=== PATIENT | female | born 1935 | race Caucasian/White ===

== ENCOUNTER 2017-12-15 09:51 | Outpatient (CLI) | payer MEDICARE ==
[~2017-12-15 09:51] MED LIST: PRED5TAB PO
[2017-12-15] MEDS ORDERED: BARIUM SULFATE 98% 135 ML SUSP.RECON PO ONE (10:45)
== END 2017-12-15 23:59 | disposition home or self-care (01) ==
LOC: RAD 09:51
DX: K44.9 Diaphragmatic hernia without obstruction or gangrene (principal)
CPT/HCPCS: 74230-TC

== ENCOUNTER 2019-09-07 10:25 | Inpatient (IN) | payer MEDICARE ==
[~2019-09-07] VITALS: Ht 157.5 cm; Wt 67.6 kg
--- NOTE | 2019-09-07 10:35 | NUR ---
[id number], from home, c/o left hip pain 7/10 PS s/p GLF, got up in bed and felt dizzy, hit L side of the head on the floor, -ko, fentanyl 100mcg. Patient a/ox3, breathing even and unlabored, no sob noted, attached to the monitoring engineer. Needs attended.
[2019-09-07 11:10] LABS: BASOPHILS # (AUTO) 0.1 /CMM (0.0-0.2); BASOPHILS % (AUTO) 0.5 % (0.0-2.0); EOSINOPHILS % (AUTO) 0.1 % (0.0-6.0); HEMATOCRIT 28 % (33-45); HEMOGLOBIN 8.8 g/dL (11.5-14.8); LYMPHOCYTES # (AUTO) 0.9 /CMM (0.8-4.8); LYMPHOCYTES % (AUTO) 6.9 % (20.0-44.0); MEAN CORPUSCULAR HGB CONC 31 g/dl (31.0-36.0); MEAN CORPUSCULAR VOLUME 80 fL (82-100); MONOCYTES % (AUTO) 7.3 % (2.0-12.0); NEUTROPHILS # (AUTO) 11.7 /CMM (1.8-8.9); NEUTROPHILS % (AUTO) 85.2 % (43.0-81.0); PLATELET COUNT (AUTO) 290 /CMM (150-450); RED BLOOD CELL COUNT(AUTO) 3.48 MIL/uL (4.0-5.2); WHITE BLOOD COUNT (AUTO) 13.8 K/uL (4.3-11.0)
[2019-09-07 11:29] LABS: CALCIUM, SERUM 9.3 mg/dL (8.5-10.1); CREATININE 1.1 mg/dL (0.6-1.3); POTASSIUM 3.6 mmol/L (3.5-5.1)
[2019-09-07] MEDS ORDERED: ONDANSETRON HCL/PF 4 MG/2 ML VIAL ONE (11:41)
[2019-09-07] MEDS ORDERED: HYDROMORPHONE 1 MG/1 ML DISP.SYRIN ONE (11:42)
--- NOTE | 2019-09-07 11:46 | NUR ---
CALLED FOR MS BED MOVE SHEET SUBMITTED TO ADMITTING
[2019-09-07] MEDS ORDERED: ONDANSETRON HCL/PF 4 MG/2 ML VIAL IVP ONE (12:00)
[2019-09-07] MEDS ORDERED: HYDROMORPHONE INJ 2 MG/ML DISP.SYRIN IV ONE (12:00)
--- NOTE | 2019-09-07 12:12 | NUR ---
Patient is resting comfortably in bed with eyes closed. Easily aroused. VSS
--- NOTE | 2019-09-07 12:13 | NUR ---
CALLED [facility] [phone] ITS LISA
--- NOTE | 2019-09-07 12:41 | NUR ---
GOT BED 321-1 LINDSEY ACOSTA
--- NOTE | 2019-09-07 12:46 | NUR ---
CALLED [facility] ITS ANDONIAN
--- NOTE | 2019-09-07 12:51 | NUR ---
CALLED [facility] AGAIN [phone] ITS LISA
--- NOTE | 2019-09-07 13:26 | NUR ---
CALLED [facility] 3RD TIME [phone]
--- NOTE | 2019-09-07 13:29 | NUR ---
REPORT GIVEN TO KARLA PORTILLO.
[2019-09-07] MEDS ORDERED: ZOLPIDEM TARTRATE 5 MG TABLET PO PRN (14:00)
[2019-09-07] MEDS ORDERED: MAGNESIUM HYDROXIDE 30 ML UDC PO PRN (14:00)
[2019-09-07] MEDS ORDERED: MAG HYDROX/AL HYDROX/SIMETH 30 ML UDC PO PRN (14:00)
[2019-09-07] MEDS ORDERED: Z GUARD REMEDY 2 OZ OINT TP PRN (14:00)
--- NOTE | 2019-09-07 14:05 | NUR ---
PATIENT TRANSFERRED TO ROOM 321-1
--- NOTE | 2019-09-07 14:12 | NUR ---
RN NOTES PATIENT ARRIVED AT UNIT, REPORT RECEIVED FROM MANDA PORTILLO. PATIENT AWAKE, A/OX 4. NO ACUTE DISTRESS. VERBALIZES DISCOMFORT ON LEFT HIP BUT MANAGEABLE LONG LEFT HIP IS NOT MOVED/TOUCHED. PATIENT ORIENTED TO UNIT, STAFF, PLAN OF CARE AND VERBALIZED UNDERSTANDING. PATIENT UNDER MEDICAL SUPERVISION OF DR PALACIOS, AWARE OF PATIENT ARRIVAL. WILL CONTINUE TO MONITOR. BED LOCKED AND IN LOW POSITION. BILATERAL UPPER SIDE RAILS UP AND LOCKED. CALL LIGHT WITHIN EASY REACH
[2019-09-07 16:00] VITALS: BP 140/56
--- NOTE | 2019-09-07 16:15 | NUR ---
MS RN NOTES PLACED CALL TO [facility] ([phone]) AND SPOKE WITH [place] PHARMACIST, OBTAINED LIST OF MEDICATIONS PATIENT IS TAKING. DR PALACIOS MADE AWARE. WITH ORDERS TO CONTINUE MEDICATIONS EXCEPT METOPROLOL, ASA, PLAVIX. PATIENT MADE AWARE. WILL CONTINUE TO MONITOR
[2019-09-07] MEDS ORDERED: LEVO137T24 PO (16:24)
[2019-09-07] MEDS ORDERED: METO25TA4 PO (16:24)
[2019-09-07] MEDS ORDERED: PRED5TAB48 PO (16:24)
[2019-09-07] MEDS ORDERED: FURO-145 PO (16:24)
[2019-09-07] MEDS ORDERED: ROSU10TA2 PO (16:24)
[2019-09-07] MEDS ORDERED: ASPI-1169 PO (16:24)
[2019-09-07] MEDS ORDERED: CLOP75TA15 PO (16:24)
[2019-09-07] MEDS ORDERED: FUROSEMIDE 20 MG TABLET PO SCH (17:00)
[2019-09-07] MEDS: MORPHINE SULFATE INJ 2 MG/ML DISP.SYRIN IV PRN (17:02)
[2019-09-07] MEDS: predniSONE 5 MG TABLET PO SCH (17:03)
--- NOTE | 2019-09-07 17:15 | NUR ---
MS RN NOTES PATIENT SEEN AND EXAMINED BY OVI ROBLES. VERBALIZED THAT NO SURGICAL PROCEDURE TO BE DONE TODAY, PATIENT MAY HAVE PO DIET. PATIENT MADE AWARE AND VERBALIZED UNDERSTANDING. PATIENT FOR CT OF LEFT HIP.
--- NOTE | 2019-09-07 18:53 | NUR ---
MS RN NOTES PATIENT RESTING INSIDE ROOM. AWAKE, A/O X 4. NO ACUTE DISTRESS. PATIENT KEPT CLEAN, DRY AND COMFORTABLE. SAFETY PRECAUTIONS IN PLACE. WILL ENDORSE TO INCOMING SHIFT FOR NABIL. BED LOCKED AND IN LOW POSITION. BILATERAL UPPER SIDE RAILS UP AND LOCKED. CALL LIGHT WITHIN EASY REACH
--- NOTE | 2019-09-07 19:27 | NUR ---
MS/RN OPENING NOTES RECEIVED PATIENT IN BED, ABLE TO RESPOND WITH NOD, RESPIRATIONS EVEN AND UNLABORED, SKIN WARM TO TOUCH. LEFT LEG WITH BRUISE AND REDNESS ELEVATED WITH PILLOW. RIGHT AC GAUGE 20 PATENT WITH IV FLUID BEING INFUSEDM RECEIVED REPORT FROM AM RN FOR NABIL, POLST TO BE SIGNED BY ARIN OJEDA, AND TO FOLLOW UP WITH SURGEON LISA FOR POSSIBLE SX. WILL MONITOR,
[2019-09-07 20:00] VITALS: BP 141/72
--- NOTE | 2019-09-07 20:16 | NUR ---
MS/RN NOTES PATIENT REQUEST TO BE TAKEN OUT FOR SMOKE RUSTY AM, DISCUSSED AND EDUCATED ON DISEASE PROCESS AND EXPLAINED THE RISK PATIENT VERBALIZED. Addendum: 09/07/19 at 2018 by PAULO MUNSON RN DISREGARD FOR DIFFERENT PATIENT
--- NOTE | 2019-09-07 20:19 | NUR ---
MS/RN NOTES PATIETN DAUGHTER TAVO CALLED AND ASKED ABOUT STATUS OF PENDING PROCEDUREM TEL NO [phone] THAT WILL FOLLOW UP IN AM AND WILL INFORM OWN PCP OF OATIENT DR. YELENA PAEZ [phone].
--- NOTE | 2019-09-07 21:07 | NUR ---
,S/RN NOTES PATIENT WITH ELEVATED TEMPERATURE OF 102.4 AFTER COOLING MEASURES PROVIDED, MADE AWARE AND ORDERED STAT BLOOD CULTURE 2X, ALSO PATIENT WITH NO ANTIBIOTIC AT THIS TIME.LAB MADE AWARE, AND ORDER CARRIED OUT.
--- NOTE | 2019-09-07 21:35 | NUR ---
MS/RN NOTES MD ORDERED FOR ANTIBIOTIC ROCEPHIN 1G AT 100 MLHR/
[2019-09-07] MEDS ORDERED: CEFTRIAXONE 1 G VIAL ONE (21:45)
[2019-09-07] MEDS: CEFTRIAXONE 1 G in IV D5W 50 ML IV SCH (21:54)
[2019-09-07] MEDS: IV NS 0.9% 1,000 ML IV PRN (21:54)
[2019-09-08] MEDS: ACETAMINOPHEN 325 MG TABLET PO PRN ×2 (00:01→18:31)
[2019-09-08 01:30] VITALS: BP 139/70
[2019-09-08 04:00] VITALS: BP_SYST 47
[2019-09-08 04:54] LABS: APPEARANCE,URINE CLEAR (CLEAR); COLOR,URINE YELLOW (YELLOW)
[2019-09-08 04:55] LABS: BILIRUBIN,URINE NEGATIVE (NEGATIVE); BLOOD, URINE NEGATIVE Ery/uL (NEGATIVE); KETONES,URINE NEGATIVE (NEGATIVE); PROTEIN,URINE TRACE mg/dl (NEGATIVE); UGLUCOSE NEGATIVE (NEGATIVE); UROBILINOGEN,URINE 0.2 EU/dL (0.2)
[2019-09-08 04:56] LABS: LEUKOCYTE ESTERASE ,URINE NEGATIVE (NEGATIVE); NITRITE, URINE NEGATIVE (NEGATIVE)
[2019-09-08 05:02] LABS: BACTERIA,URINE Few /HPF (None Seen); RBC,URINE 0-2 /HPF (0-2); SQUAMOUS EPITHELIAL CELL,UR Few /HPF (None Seen); WBC,URINE 0-2 /HPF (0-3)
[2019-09-08] MEDS: LEVOTHYROXINE SODIUM 100 MCG TABLET PO SCH ×2 (07:30→08:25)
[2019-09-08 07:51] LABS: BASOPHILS % (AUTO) 0.2 % (0.0-2.0); EOSINOPHILS % (AUTO) 0.5 % (0.0-6.0); HEMATOCRIT 27 % (33-45); HEMOGLOBIN 8.7 g/dL (11.5-14.8); LYMPHOCYTES # (AUTO) 0.5 /CMM (0.8-4.8); LYMPHOCYTES % (AUTO) 4.8 % (20.0-44.0); MEAN CORPUSCULAR HGB CONC 32 g/dl (31.0-36.0); MEAN CORPUSCULAR VOLUME 80 fL (82-100); MONOCYTES # (AUTO) 0.5 /CMM (0.1-1.30); MONOCYTES % (AUTO) 5.4 % (2.0-12.0); NEUTROPHILS # (AUTO) 8.9 /CMM (1.8-8.9); NEUTROPHILS % (AUTO) 89.1 % (43.0-81.0); PLATELET COUNT (AUTO) 243 /CMM (150-450); RED BLOOD CELL COUNT(AUTO) 3.38 MIL/uL (4.0-5.2)
[2019-09-08 08:00] VITALS: BP 153/66
[2019-09-08 08:08] LABS: CALCIUM, SERUM 8.6 mg/dL (8.5-10.1); CREATININE 1.2 mg/dL (0.6-1.3); POTASSIUM 4.1 mmol/L (3.5-5.1)
[2019-09-08] MEDS: MORPHINE SULFATE INJ 2 MG/ML DISP.SYRIN IV PRN ×3 (08:23→17:24)
[2019-09-08] MEDS: ONDANSETRON HCL/PF 4 MG/2 ML VIAL IVP PRN ×2 (08:24→15:13)
[2019-09-08] MEDS: ATORVASTATIN 10 MG TABLET PO SCH ×2 (08:25→08:37)
[2019-09-08] MEDS: predniSONE 5 MG TABLET PO SCH ×2 (08:25→17:00)
[2019-09-08 08:49] LABS: THYROID STIMULATING HORMONE 0.012 uIU/mL (0.358-3.74)
[2019-09-08] MEDS ORDERED: IBUPROFEN 600 MG TABLET PO PRN (09:30)
[2019-09-08 16:00] VITALS: BP_SYST 122; BP_DIAS 59; BP_DIAS 60
--- NOTE | 2019-09-08 17:00 | NUR ---
MS/RN NOTE notified Eulalia Gamez patient is on Clopidogrel 75mg daily. Last dose taken was Friday09/06/19.
--- NOTE | 2019-09-08 19:20 | NUR ---
MS RN OPENING NOTES RECEIVED PATIENT IN BED, ALERT, ORIENTED X 3. BREATHING EVEN AND UNLABORED. NOT IN ANY DISTRESS. ON ROOM AIR. NO COMPLAINTS OF PAIN OR DISCOMFORT AT THIS TIME. IV LINE ON RAC NOTED TO BE LEAKING. NEW IV LINE ON R) UPPER ARM INSERTED WITH GOOD BLOOD RETURN. SAFETY MEASURES IN PLACE; CALL LIGHT WITHIN REACH, BED IN LOW, LOCKED POSITION. WILL CONTINUE TO MONITOR ACCORDINGLY
--- NOTE | 2019-09-08 19:31 | NUR ---
MS/RN Closing note Patient is resting in bed, A/O x4, showing no signs of acute distress or SOB, saturating >95% on RA. IV line in the RAC #20 s/l is clean and patent. All patient needs met, all due meds given. Patient is to be NPO after midnight as per Eulalia DIOR. Bed is in lowest position, side rials x2 in upright position, call light is within reach and patient is aware of how to call for assistance when needed. Will endorse to senior control systems engineer.
[2019-09-08 20:00] VITALS: BP 119/57
[2019-09-08] MEDS: CEFTRIAXONE 1 G in IV D5W 50 ML IV SCH (20:44)
--- NOTE | 2019-09-08 20:50 | NUR ---
RN NOTES PATIENT INFORMED THAT SURGERY WILL BE AT 11:30AM IN THE MORNING ON 09/09/2019
[2019-09-09] VITALS (11 sets, daily range): BP systolic 117–177; BP diastolic 60–86
[2019-09-09] MEDS: IV NS 0.9% 1,000 ML IV PRN (00:39)
[2019-09-09 06:41] LABS: BASOPHILS % (AUTO) 0.2 % (0.0-2.0); EOSINOPHILS % (AUTO) 2.6 % (0.0-6.0); HEMATOCRIT 25 % (33-45); LYMPHOCYTES # (AUTO) 1.1 /CMM (0.8-4.8); LYMPHOCYTES % (AUTO) 10.6 % (20.0-44.0); MEAN CORPUSCULAR HGB CONC 32 g/dl (31.0-36.0); MEAN CORPUSCULAR VOLUME 80 fL (82-100); MONOCYTES # (AUTO) 0.9 /CMM (0.1-1.30); MONOCYTES % (AUTO) 8.1 % (2.0-12.0); NEUTROPHILS # (AUTO) 8.2 /CMM (1.8-8.9); NEUTROPHILS % (AUTO) 78.5 % (43.0-81.0); PLATELET COUNT (AUTO) 224 /CMM (150-450); RED BLOOD CELL COUNT(AUTO) 3.14 MIL/uL (4.0-5.2); WHITE BLOOD COUNT (AUTO) 10.5 K/uL (4.3-11.0)
--- NOTE | 2019-09-09 06:44 | NUR ---
MS RN CLOSING NOTES PATIENT RESTING IN BED, ALERT, ORIENTED X 3. BREATHING EVEN AND UNLABORED. NOT IN ANY DISTRESS. NO COMPLAINTS AT THIS TIME. PERIPHERAL IV INFUSING AT 100ML/HR. KEPT CLEAN, DRY AND COMFORTABLE. NO ACUTE CHANGES OVERNIGHT. SAFETY MEASURES IN PLACE; CALL LIGHT WITHIN REACH. BED IN LOW, LOCKED POSITION. WILL ENDORSE NABIL TO ONCOMING RN
[2019-09-09 07:10] LABS: CALCIUM, SERUM 8.5 mg/dL (8.5-10.1); CARBON DIOXIDE 25 mmol/L (21-32); CHLORIDE 109 mmol/L (98-107); CREATININE 1.4 mg/dL (0.6-1.3); GLUCOSE 93 mg/dL (74-106); POTASSIUM 3.7 mmol/L (3.5-5.1); SODIUM SERUM 141 mmol/L (136-145); UREA NITROGEN, BLOOD 28 mg/dL (7-18)
[2019-09-09] MEDS: LEVOTHYROXINE SODIUM 100 MCG TABLET PO SCH (07:30)
--- NOTE | 2019-09-09 07:40 | NUR ---
MS/RN NOTE THE PATIENT IS RECEIVED IN BED. PATIENT IS ALERT AND ORIENTED X4. IN ROOM AIR AND DENIES SOB. RESPIRATION REGULAR AND UNLABORED. COMPLAINS OF LEFT HIP PAIN 3/10 AT THIS TIME. OFFERED PAIN MEDICATION BUT THE PATIENT REFUSES PAIN MEDICATION AT THIS TIME. PATIENT NPO SINCE MIDNIGHT. NEHEMIAH G 20 PATENT AND NS INFUSING AT 100ML/HR AND NO S/S INFILTRATION NOTED. BED LOW AND LOCKED. SIDE RAILS UP X3. CALL LIGHT WITHIN REACH. WILL CONTINUE TO MONITOR.
[2019-09-09] MEDS: predniSONE 5 MG TABLET PO SCH ×2 (08:45→16:25)
[2019-09-09] MEDS: ATORVASTATIN 10 MG TABLET PO SCH (08:45)
--- NOTE | 2019-09-09 09:43 | NUR ---
MS/RN NOTE RECEIVED NEW ORDER FROM DR DEVLIN FOR 1 UNIT O PRBC FOR HGB LESS THAN 7. THE ORDER IS READ BACK, VERIFIED. NOTED AND CARRIED OUT.
[2019-09-09] MEDS: MORPHINE SULFATE INJ 2 MG/ML DISP.SYRIN IV PRN ×2 (10:13→16:21)
--- NOTE | 2019-09-09 10:31 | NUR ---
MS/RN NOTE THE PATIENT GOT PICKED UP IN BED GOING TO A SURGERY. THE PATIENT ALERT AND ORIENTED X4. DENIES SOB. IN ROOM AIR AND SATURATION IS AT 98%. DENIES PAIN AT THIS TIME. THE PATIENT IN STABLE CONDITION.
--- NOTE | 2019-09-09 10:50 | NUR ---
MS/RN NOTE 1043 PAIN ASSESSMENT NOT DONE DUE TO PATIENT BEING IN OR AT THE TIME.
[2019-09-09] MEDS ORDERED: BUPIVACAINE 0.5 % PF 150 MG/30 ML VIAL ONE (10:51)
[2019-09-09] MEDS ORDERED: BACITRACIN 50000 UNITS/VIAL ONE (10:51)
[2019-09-09] MEDS ORDERED: FENTANYL PF 100MCG/2ML AMPUL ONE (12:57)
[2019-09-09] MEDS ORDERED: HYDROMORPHONE 1 MG/1 ML DISP.SYRIN ONE (13:00)
[2019-09-09 13:20] LABS: BASOPHILS % (AUTO) 0.1 % (0.0-2.0); EOSINOPHILS % (AUTO) 2.7 % (0.0-6.0); HEMATOCRIT 26 % (33-45); HEMOGLOBIN 8.1 g/dL (11.5-14.8); LYMPHOCYTES # (AUTO) 0.5 /CMM (0.8-4.8); LYMPHOCYTES % (AUTO) 4.7 % (20.0-44.0); MEAN CORPUSCULAR HGB CONC 32 g/dl (31.0-36.0); MEAN CORPUSCULAR VOLUME 81 fL (82-100); MONOCYTES # (AUTO) 0.6 /CMM (0.1-1.30); MONOCYTES % (AUTO) 5.6 % (2.0-12.0); NEUTROPHILS % (AUTO) 86.9 % (43.0-81.0); PLATELET COUNT (AUTO) 230 /CMM (150-450); RED BLOOD CELL COUNT(AUTO) 3.16 MIL/uL (4.0-5.2); WHITE BLOOD COUNT (AUTO) 10.3 K/uL (4.3-11.0)
--- NOTE | 2019-09-09 13:25 | NUR ---
MS/RN NOTE RECEIVED THE PATIENT FROM OR. THE PATIENT IS ALERT AND ORIENTED X4. RECEIVING OXYGEN AT 2L/MIN VIA NASAL CANNULA AND DENIES SOB. RESPIRATION REGULAR AND UNLABORED. PATIENT COMPLAINS OF LEFT HIP AND LEG PAIN 5/10. DOES NOT WANT PAIN MEDICATION AT THIS TIME. PEDAL PULSES PRESENT. NO APPARENT S/S POOR CIRCULATION NOTED. APPLIED SCD SLEEVES ON BOTH LOWER LEGS. BED LOW AND LOCKED. SIDE RAILS UP X3. CALL LIGHT WITHIN REACH. WILL CONTINUE TO MONITOR.
[2019-09-09] MEDS: ONDANSETRON HCL/PF 4 MG/2 ML VIAL IVP PRN (13:40)
[2019-09-09] MEDS ORDERED: ENOXAPARIN SODIUM 40 MG/0.4 ML DISP.SYRIN SQ SCH (14:00)
[2019-09-09] MEDS: IV LR 1000 ML 1,000 ML IV PRN (14:35)
--- NOTE | 2019-09-09 15:10 | NUR ---
MS/RN NOTE LOVENOX 40 MG SQ DUE AT 1400 IS NOT ADMINISTERED DUE TO PATIENT`S REFUSAL.
[2019-09-09] MEDS: SOD FERRIC GLUC 125 MG in IV NS 0.9% 100 ML IV SCH (16:02)
--- NOTE | 2019-09-09 16:10 | NUR ---
MS/RN NOTE PATIENT`S BLOOD PRESSURE IS 172/84 AND PULSE 74. PAGED ANDONIAN. WAITING FOR CALL BACK.
--- NOTE | 2019-09-09 16:30 | NUR ---
MS/RN NOTE PATIENT COMPLAINS OF LEFT EYE PAIN 2 AND REQUESTING ARTIFICIAL EYE DROPS. NO APPARENT S/S STROKE NOTED.
--- NOTE | 2019-09-09 16:50 | NUR ---
MS/RN NOTE BLOOD PRESSURE IS 176/80 AND PULSE 70.
--- NOTE | 2019-09-09 17:00 | NUR ---
MS/RN NOTE RECEIVED CALL FROM DR PALACIOS, MADE HIM AWARE OF PATIENT`S BLOOD PRESSURE READINGS AND PATIENT COMPLAINING OF LEFT EYE PAIN. RECEIVED ORDERS OF APRESOLINE 25 MG PO ONE TIME ORDER AND ARTIFICIAL TEARS DROP 1 DROP IN EACH EYES Q8HR PRN. READ BACK, VERIFIED. NOTED AND CARRIED OUT.
--- NOTE | 2019-09-09 17:19 | NUR ---
MS/RN NOTE PHARMACY VERIFIED APRESOLINE 25 MG PO. ADMINISTERED THE MEDICATION FOR BLOOD PRESSURE OF 166/80, PULSE 80. WILL CONTINUE TO MONITOR.
[2019-09-09] MEDS ORDERED: hydrALAZINE HCL 25 MG TABLET PO ONE (17:30)
--- NOTE | 2019-09-09 18:17 | NUR ---
MS/RN NOTE BLOOR PRESSURE RECHECKED: BLOOR PRESSURE IS 140/60 AND PULSE 92.
[2019-09-09] MEDS: CARBOXYMETHYLCELLULOSE SODIUM 0.4 ML DROPERETTE EACHEYE PRN (18:18)
--- NOTE | 2019-09-09 18:21 | NUR ---
MS/RN NOTE THE PATIENT IS ALERT AND ORIENTED X3. IN ROOM AIR AND SATURATION IS AT 92%. DENIES SOB. PATIENT COMPLAINS OF LEFTHIP PAIN 2/. DRESSING INTACT WITH NO BLEEDING. NO APPARENT S/S INFECTION NOTE AROUND DRESSING. THE PATIENT TOLERATED REGULAR DIET WELL. RIGHT WRIST G 22 PATENT AND IV FLUID INFUSING PER ORDER. NO S/S INFILTRATION NOTED. BED LOW AND LOCKED. SIDE RAILS UP X3. CALL LIGHT WITHIN REACH. WILL ENDORSE TO ROLLER OPERATOR.
--- NOTE | 2019-09-09 18:26 | NUR ---
MS/RN NOTE THE PATIENT DENIES HAVING PAIN/DISCOMFORT AT THIS TIME.
--- NOTE | 2019-09-09 19:30 | NUR ---
MS RN RECEIVE PT IN BED A/O X 3, S/P ORIF L HIP FX, L HIP WITH SURGICAL DRESSING INTACT NO S/S OF BLEEDING NOTED. STABLE AND NOT IN DISTRESS, SAFETY MEASURES AT ALL TIMES. WILL CONT TO MONITOR
--- NOTE | 2019-09-09 20:05 | NUR ---
VANDANA HOSPITALIST PT C/O REQUESTING DIGGS CATH TO BE INSERTED PER HOSPITALIST CALLED [facility]. CALLED [facility] SPOKE TO DR. IAN SWANN WITH NEW ORDERS TO INSERT DIGGS CATHETER READ BACK AND VERIFIED ORDERS NOTED AND CARRIED OUT
--- NOTE | 2019-09-09 20:20 | NUR ---
MS RN INSERTED DIGGS CATHETER FR 16 PT TOLERATED PROCEDURE WELL. STERILE TECHNIQUE
[2019-09-09] MEDS: HYDROCODONE/APAP 5/325MG 1 EACH TABLET PO PRN (20:37)
[2019-09-09] MEDS: CEFTRIAXONE 1 G in IV D5W 50 ML IV SCH (22:03)
[2019-09-09] MEDS: ENOXAPARIN SODIUM 40 MG/0.4 ML DISP.SYRIN SQ SCH (22:04)
[2019-09-10] VITALS (7 sets, daily range): BP systolic 158–180; BP diastolic 64–83
[2019-09-10] MEDS: IV LR 1000 ML 1,000 ML IV PRN ×2 (03:41→23:21)
--- NOTE | 2019-09-10 06:17 | NUR ---
PT ASLEEP AND EASILY AWAKEN, MONITORED FOR PAIN NO C/O OF PAIN AT THIS TIME.S/P L HIP ORIF DRESSING INTACT NO S/S OF BLEEDING NOTED. NEEDS ATTENDED AND ANTICIPATED. KEPT CLEAN, DRY AND COMFORTABLE. AM CARE RENDERED. ASSISTED REPOSITION Q2HR. OFFLOAD HEELS AND ELBOWS AT ALL TIMES. WBAT. SAFETY MEASURES AT ALL TIMES. WILL ENDORSE TO NEXT SHIFT.
--- NOTE | 2019-09-10 07:38 | NUR ---
MS/RN Opening note Patient received resting in bed, A/O x3, showing no signs of acute distress or SOB, saturating >95% on RA. Iv line on the right wrist #22 is clean and patent running at 75 ml/hr. S/P L hip ORIF with Dr. Leach. Dressing is intact, showing no s/s of bleeding. Bed is in lowest position, side rails x3 in upright position, call light is within reach and patient is aware of how to call for assistance when needed. Safety and fall precautions enforced. Will continue with plan of care.
--- NOTE | 2019-09-10 08:00 | NUR ---
MS/RN note Patient complained of chest pain radiating to back, notified Dr. Tucker, he assessed patient and ordered state EKG, troponin, and 0.4mg nitro SL. Addendum: 09/10/19 at 0954 by EDITH GOMEZ RN When Dr. Tucker entered room, patient stated her chest pain has gotten better, prior to any intervention.
[2019-09-10] MEDS: CARBOXYMETHYLCELLULOSE SODIUM 0.4 ML DROPERETTE EACHEYE PRN (08:28)
[2019-09-10] MEDS: ATORVASTATIN 10 MG TABLET PO SCH ×2 (08:41→08:47)
[2019-09-10] MEDS: predniSONE 5 MG TABLET PO SCH ×2 (08:48→16:17)
[2019-09-10] MEDS ORDERED: NITROGLYCERIN 0.4 MG/TAB BOTTLE SL ONE (09:00)
--- NOTE | 2019-09-10 09:00 | NUR ---
MS/RN note Nitro given. Patient on 2L NC. Will continue to monitor
--- NOTE | 2019-09-10 09:15 | NUR ---
MS/RN note Patient remains stable, no complaints of pain at this time. BP 158/64, O2 98% on 2L NC, temp 98.4 F.
--- NOTE | 2019-09-10 10:00 | NUR ---
MS/RN PT S/B PT, walked 10 feet with walker, PT approved for patient to use bedside commode.
--- NOTE | 2019-09-10 12:00 | NUR ---
/RN Gilliland Gilliland catheter removed per patient's request to try and use bedside commode. Will continue to monitor. Addendum: 09/10/19 at 1435 by EDITH GOMEZ RN as ordered, gilliland removed after 24 hrs post-op. Patient will be on trial void. Will continue to monitor for any bladder distention and urinary retention.
--- NOTE | 2019-09-10 12:00 | NUR ---
MS/RN troponin Notified Dr. Tucker troponin is 0.216. Ordered routine Troponin lab x2. No further orders at this time.
[2019-09-10] MEDS: SOD FERRIC GLUC 125 MG in IV NS 0.9% 100 ML IV SCH (12:40)
--- NOTE | 2019-09-10 16:01 | NUR ---
MS/RN Elevated BP Notified Dr. Tucker of BP 180/68 IN 87. Hydralazine 25mg PRN Q6 hours for BP greater than 160/90 ordered. Repeated order back to MD and will carry out the order.
[2019-09-10] MEDS: hydrALAZINE HCL 25 MG TABLET PO PRN ×2 (16:18→21:44)
--- NOTE | 2019-09-10 17:00 | NUR ---
MS/RN elevated BP Notified Dr. Tucker of patient's BP 196/89, DC 84. Manual BP 170/70. Patient stated she became anxious after family visited her, family constantly calling her cellphone and after getting up to the bedside commode. No new orders from MD at this time. Will educate patient on relaxation methods and monitor blood pressure, per MD.
[2019-09-10] MEDS: MORPHINE SULFATE INJ 2 MG/ML DISP.SYRIN IV PRN (17:10)
--- NOTE | 2019-09-10 18:00 | NUR ---
MS/RN NOTE Patient able to urinate 200cc in bedside commode
--- NOTE | 2019-09-10 19:16 | NUR ---
MS/RN Closing note Patient is resting in bed, saturating >95% on 2L NC. Showing no signs of distress at this time. IV line in the RFA #22 is running NS @ 75ml/hour. Left hip surgical incision is clean and dry with no signs of bleeding. All patient needs met, all due meds given. Bed is in lowest position, side rails x3 in upright position, safety and fall precautions enforced. Call light is within reach and patient is aware of how to call for assistance when needed. Will endorse to second shift supervisor. Addendum: 09/10/19 at 1923 by EDITH GOMEZ RN IV running LR at 75ml/hour
--- NOTE | 2019-09-10 20:30 | NUR ---
pt requesting colace. spoke with rainer xiong new order for colace 100 mg bid po given with dose ordered for now. patient hasnt had bm since last friday per her account. `
--- NOTE | 2019-09-10 21:14 | NUR ---
pt refused lab draw. scheduled troponin. patient refused lab draw per laboratory assistant. spoke with patient states "I don't want to have the labs. my arm just cant take it anymore." infomred that the lab will be added to am labs. pt states "well we will have to just see how my arm feels later in the am."
[2019-09-10] MEDS: DOCUSATE SODIUM 100 MG CAPSULE PO SCH (21:30)
[2019-09-10] MEDS: ENOXAPARIN SODIUM 40 MG/0.4 ML DISP.SYRIN SQ SCH (21:34)
[2019-09-11] VITALS (8 sets, daily range): BP systolic 128–174; BP diastolic 59–72
--- NOTE | 2019-09-11 | NUR ---
LINDSEY NOTES: RESTING, APPEARS CALM AND COMFORTABLE, NO FACIAL GRIMACE NOTED. Addendum: 09/12/19 at 0647 by TIA DELCID RN DISREGARD ABOVE DOCUMENTATION: WRONG ENTRY
[2019-09-11 07:14] LABS: BASOPHILS % (AUTO) 0.1 % (0.0-2.0); EOSINOPHILS % (AUTO) 0.1 % (0.0-6.0); LYMPHOCYTES % (AUTO) 8.9 % (20.0-44.0); MEAN CORPUSCULAR HGB CONC 33 g/dl (31.0-36.0); MEAN CORPUSCULAR VOLUME 80 fL (82-100); MONOCYTES # (AUTO) 1.1 /CMM (0.1-1.30); MONOCYTES % (AUTO) 10.1 % (2.0-12.0); NEUTROPHILS # (AUTO) 8.8 /CMM (1.8-8.9); NEUTROPHILS % (AUTO) 80.8 % (43.0-81.0); PLATELET COUNT (AUTO) 210 /CMM (150-450); RED BLOOD CELL COUNT(AUTO) 2.44 MIL/uL (4.0-5.2); WHITE BLOOD COUNT (AUTO) 10.9 K/uL (4.3-11.0)
[2019-09-11 07:53] LABS: HEMATOCRIT 20 % (33-45); HEMOGLOBIN 6.4 g/dL (11.5-14.8)
--- NOTE | 2019-09-11 07:54 | NUR ---
MS/RN Critical lab Received call from lab, spoke with Marva. Stated patient's Hemoglobin 6.4, hematocrit 20. Informed Dr. Tucker of the lab results and he ordered another set of Hemoglobin and Hematocrit labs at 1000. No further orders at this time. Will continue to monitor.
[2019-09-11 08:27] LABS: EOSINOPHILS % (MANUAL) 1 % (0-4); LYMPHOCYTES % (MANUAL) 3 % (16-48); MONOCYTES % (MANUAL) 5 % (0-11.0); NEUTROPHILS % (MANUAL) 91 (42-76)
[2019-09-11] MEDS: ATORVASTATIN 10 MG TABLET PO SCH (09:00)
[2019-09-11] MEDS ORDERED: ENOXAPARIN SODIUM 60 MG/0.6 ML DISP.SYRIN SQ SCH (09:00)
--- NOTE | 2019-09-11 09:00 | NUR ---
MS/RN DC lovenox Lovenox DC'd per MD order due to critcal value of Hgb 6.4
[2019-09-11 09:33] LABS: CALCIUM, SERUM 8.4 mg/dL (8.5-10.1); CREATININE 1.2 mg/dL (0.6-1.3); POTASSIUM 4.6 mmol/L (3.5-5.1)
[2019-09-11] MEDS: predniSONE 5 MG TABLET PO SCH ×3 (09:33→17:31)
[2019-09-11] MEDS: DOCUSATE SODIUM 100 MG CAPSULE PO SCH ×2 (09:33→17:00)
[2019-09-11] MEDS: MORPHINE SULFATE INJ 2 MG/ML DISP.SYRIN IV PRN ×2 (09:35→14:59)
[2019-09-11 12:25] LABS: HEMOGLOBIN 6.5 g/dL (11.5-14.8)
--- NOTE | 2019-09-11 12:28 | NUR ---
MS/RN critical lab value Received a call from lab, spoke with Marva. Critical lab value of Hgb 6.5. Paged Dr. Tucker
--- NOTE | 2019-09-11 13:44 | NUR ---
MS RN NOTES-- RECEIVED VERBAL ORDER FROM DR. PALACIOS FOR MIDLINE INSERTION FOR MULTIPLE PIV ATTEMPS. ORDERS READ BACK AND VERIFIED. NOTIFIED SHEET HEATER HELPER MELCHOR.
--- NOTE | 2019-09-11 14:19 | NUR ---
MS/RN received a call from lab that they have blood ready since 09/09/19 and that its ok to give today.
[2019-09-11] MEDS: ACETAMINOPHEN 325 MG TABLET PO PRN (15:31)
--- NOTE | 2019-09-11 15:50 | NUR ---
MS/RN Blood transfusion Blood transfusion started. I am currently at the bedside, will monitor patient closely.
--- NOTE | 2019-09-11 16:05 | NUR ---
MS/RN blood transfusion Patient showing no signs of acute distress or SOB, patient reports no s/sx of transfusion reaction. Will continue to monitor.
[2019-09-11] MEDS: SOD FERRIC GLUC 125 MG in IV NS 0.9% 100 ML IV SCH (18:57)
--- NOTE | 2019-09-11 18:58 | NUR ---
MS RN NOTE PATIENT TOLERATED BLOOD TRANSFUSION. VITAL SIGNS WNL. NO ADVERSE REACTIONS. PATIENT IN NO ACUTE DISTRESS. NO SOB NOTED. PATIENT BREATHING IS EVEN AND UNLABORED. WILL CONTINUE TO MONITOR.
--- NOTE | 2019-09-11 19:10 | NUR ---
MS RN CLOSING NOTE PATIENT IN BED RESTING COMFORTABLY. PATIENT IN NO ACUTE DISTRESS. NO SOB NOTED. PATIENT BREATHING IS EVEN AND UNLABORED. PATIENT NEEDS AND CONCERNS ADDRESSED. HOB IS ELEVATED. BED ALARM IS ON. PATIENT KEPT CLEAN, DRY AND COMFORTABLE THROUGHOUT SHIFT. SURGICAL DRESSING DRY AND INTACT. PATIENT EXTREMITIES OFFLOADED ON PILLOWS. PATIENT MIDLINE INTACT AND PATENT. PATIENT BED IS LOCKED AND IN LOWEST POSITION. CALL LIGHT WITHIN REACH. WILL ENDORSE CARE TO PM SHIFT FOR NABIL.
--- NOTE | 2019-09-11 19:30 | NUR ---
RN NOTES/ASSESSMENT: RECEIVED REPORT FROM DOROTHY PORTILLO. PT RESTING, APEARS CALM AND COMFORTABLE, NO FACIAL GRIMACE NOTED. S/P LEFT HIP ORIF BY DR SOSA , DRESSING C/D/I, NO ACTIVE BLEEDING NOTED. NEW MIDLINE INSERTED BY DR TANG. S/P 1UNITS PRBC TODAY FOR H/H 6.5 AND 21. PATENT AND FLUSHING WELL, ON HL. OFFERED PAIN MEDICATION BUT REFUSED, STATED SHE'S OKAY AT THIS TIME, AND WILL CALL IF PAIN MEDS IS NEEDED. PT WORKED WITH PT TODAY. DISCUSSED PLAN OF CARE TO PT. SAFETY PRECAUTIONS FOR FALL INITIATED, CALL LIGHT IN REACH, WILL CONTINUE MONITORING PT.
--- NOTE | 2019-09-11 19:46 | NUR ---
MS PORTILLO NOTE PATIENT TOLERATED MIDLINE WELL. PATIENT IN NO DISTRESS. MIDLINE PATENT AND INTACT. Addendum: 09/11/19 at 1947 by EDITH GOMEZ RN AT 1341.
--- NOTE | 2019-09-11 20:00 | NUR ---
RN NOTES/COOLING MEASURES: COOLING MEASURES PROVIDED, REMOVED EXCESS BLANKET, TEMP 99.9. WILL RECHECK IN AN HOUR.
--- NOTE | 2019-09-11 21:00 | NUR ---
RN NOTES/TEMP: RECHECK TEMP 99.0. PRN TYLENOL WAS ADMINISTERED AT 1531. CONTINUE WITH COOLING MEASURES.
--- NOTE | 2019-09-12 | NUR ---
RN NOTES: RESTING IN BED, APPEARS CALM AND COMFORTABLE, NO FACIAL GRIMACE NOTED.
[2019-09-12 05:43] LABS: BASOPHILS % (AUTO) 0.2 % (0.0-2.0); EOSINOPHILS % (AUTO) 2.4 % (0.0-6.0); HEMATOCRIT 23 % (33-45); HEMOGLOBIN 7.5 g/dL (11.5-14.8); LYMPHOCYTES # (AUTO) 1.9 /CMM (0.8-4.8); LYMPHOCYTES % (AUTO) 17.5 % (20.0-44.0); MEAN CORPUSCULAR HGB CONC 33 g/dl (31.0-36.0); MEAN CORPUSCULAR VOLUME 83 fL (82-100); MONOCYTES % (AUTO) 9.2 % (2.0-12.0); NEUTROPHILS # (AUTO) 7.7 /CMM (1.8-8.9); NEUTROPHILS % (AUTO) 70.7 % (43.0-81.0); PLATELET COUNT (AUTO) 240 /CMM (150-450); WHITE BLOOD COUNT (AUTO) 10.9 K/uL (4.3-11.0)
[2019-09-12 06:41] LABS: ALBUMIN 2.3 g/dL (3.4-5.0); BILIRUBIN,TOTAL 0.4 mg/dL (0.2-1.0); CALCIUM, SERUM 8.3 mg/dL (8.5-10.1); MAGNESIUM 2.2 mg/dL (1.8-2.4); PHOSPHORUS 3.2 mg/dL (2.5-4.9); POTASSIUM 3.9 mmol/L (3.5-5.1); TOTAL PROTEIN, SERUM 5.8 g/dL (6.4-8.2)
--- NOTE | 2019-09-12 06:46 | NUR ---
END OF SHIFT REPORT: PT RESTING, REMAINS AFEBRILE. RIGHT BASILIC MIDLINE REMAINS PATENT AND FLUSHIGN WELL, ON HL, NO S/S OF IV INFILTRATION NOTED. DRESSING ON LEFT HIP REMAINS C/D/I, NO ACTIVE BLEEDING NOTED. BLE KEPT OFFLOADED ON PILLOWS. POSSIBLE DC TO [facility] TODAY. EXIT CARE FILLED OUT. VS REMAINS STABLE, NEEDS ATTENDED. SAFETY PRECAUTIONS FOR FALL REMAINS ENGAGED, CALL LIGHT IN REACH, WILL ENDORSE TO DAY RN FOR CONTINUITY OF CARE.
--- NOTE | 2019-09-12 07:30 | NUR ---
MS RN OPENING NOTES RECEIVED PATIENT IN BED. ALERT AND AWAKE ORIENTED X3. NO S/S OF RESPIRATORY DISTRESS. DENIES ANY C/O PAIN NOR DISCOMFORT AT THIS TIME. ASSISTED TO BED SIDE COMMODE. NEHEMIAH MIDLINE INTACT AND PATENT. LEFT HIP SX INCISION DRESSING INTACT. BED IN LOWEST POSITION, LOCKED. CALL LIGHT WITHIN REACH. ABLE TO VERBALIZE NEEDS.
[2019-09-12 08:11] VITALS: BP 160/75
[2019-09-12] MEDS: predniSONE 5 MG TABLET PO SCH ×2 (08:42→17:00)
[2019-09-12] MEDS: MORPHINE SULFATE INJ 2 MG/ML DISP.SYRIN IV PRN (08:42)
[2019-09-12] MEDS: DOCUSATE SODIUM 100 MG CAPSULE PO SCH ×2 (08:43→17:05)
[2019-09-12] MEDS: ATORVASTATIN 10 MG TABLET PO SCH (08:43)
[2019-09-12] MEDS: HYDROCODONE/APAP 5/325MG 1 EACH TABLET PO PRN (10:20)
[2019-09-12 16:19] VITALS: BP 151/76
[2019-09-12] MEDS: SOD FERRIC GLUC 125 MG in IV NS 0.9% 100 ML IV SCH (17:05)
--- NOTE | 2019-09-12 17:06 | NUR ---
MS RN NOTES RECEIVED FERRIC GLUC FROM PHARMACY, ADMINISTERED MARKY WELL VIA IV NEHEMIAH MIDLINE.
--- NOTE | 2019-09-12 17:06 | NUR ---
MS RN NOTES INFORMED PATIENT THAT LAST CT HEART ANGIO WAS DONE IN 2017 AT [facility] AND CHEST CT WITHOUT CONTRAST WAS DONE RECENTLY. PER PATIENT, SHE WOULD RATHER NOT DO THE CT HEART 3D IMAGE AND PREFERS TO GO TO REHAB RUST[facility] AT [facility] AND FOLLOW UP WITH HER OWN TECHNICAL INTERN.
--- NOTE | 2019-09-12 18:53 | NUR ---
MS RN CLOSING NOTES PATIENT RESTING COMFORTABLY IN BED. NO S/S OF RESPIRATORY DISTRESS. DENIES ANY C/O PAIN NOR DISCOMFORT AT THIS TIME. MARKY PHYSICAL THERAPY WELL DURING TREATMENT. NEHEMIAH MIDLINE INTACT AND PATENT WITHOUT S/S OF COMPLICATIONS. LEFT HIP SX INCISION DRESSING INTACT. BED IN LOWEST POSITION, LOCKED. CALL LIGHT WITHIN REACH. ABLE TO VERBALIZE NEEDS. IN NO APPARENT DISTRESS.
--- NOTE | 2019-09-12 19:10 | NUR ---
MS RN OPENING NOTES Received patient A/O x4, awake on bed. Denies discomfort at this time. On RA, no SOB/respiratory distress noted. On fall and aspiration precautions. Kept on bed clean, dry and comfortable. Call light within easy reach. Will continue to monitor accordingly.
[2019-09-12 20:00] VITALS: BP_SYST 140; BP_SYST 179; BP_DIAS 56; BP_DIAS 76
--- NOTE | 2019-09-13 06:46 | NUR ---
MS RN CLOSING NOTES Patient intermittently asleep, on RA, no SOB/respiratory distress noted. Able to use BSC, tolerated well. No new complaints made within the shift. Afebrile. All nursing needs attended. On fall and aspiration precautions. Kept on bed clean, dry and comfortable. Call light within easy reach. Endorsed to the next shift.
[2019-09-13 07:21] LABS: BASOPHILS # (AUTO) 0.1 /CMM (0.0-0.2); BASOPHILS % (AUTO) 0.5 % (0.0-2.0); EOSINOPHILS % (AUTO) 2.7 % (0.0-6.0); HEMATOCRIT 26 % (33-45); HEMOGLOBIN 8.4 g/dL (11.5-14.8); LYMPHOCYTES # (AUTO) 1.5 /CMM (0.8-4.8); LYMPHOCYTES % (AUTO) 14.9 % (20.0-44.0); MEAN CORPUSCULAR HGB CONC 32 g/dl (31.0-36.0); MEAN CORPUSCULAR VOLUME 82 fL (82-100); MONOCYTES % (AUTO) 9.5 % (2.0-12.0); NEUTROPHILS # (AUTO) 7.5 /CMM (1.8-8.9); NEUTROPHILS % (AUTO) 72.4 % (43.0-81.0); PLATELET COUNT (AUTO) 243 /CMM (150-450); RED BLOOD CELL COUNT(AUTO) 3.13 MIL/uL (4.0-5.2); WHITE BLOOD COUNT (AUTO) 10.4 K/uL (4.3-11.0)
[2019-09-13 07:22] LABS: CALCIUM, SERUM 8.2 mg/dL (8.5-10.1); POTASSIUM 3.7 mmol/L (3.5-5.1)
[2019-09-13] MEDS: DOCUSATE SODIUM 100 MG CAPSULE PO SCH ×2 (08:23→17:24)
[2019-09-13] MEDS: ATORVASTATIN 10 MG TABLET PO SCH (08:23)
[2019-09-13] MEDS ORDERED: BISACODYL SUPP (10 MG) 10 MG/SUPP.RECT SUPP.RECT RC PRN (09:00)
[2019-09-13] MEDS: predniSONE 5 MG TABLET PO SCH ×2 (09:51→17:23)
[2019-09-13] MEDS: MORPHINE SULFATE INJ 2 MG/ML DISP.SYRIN IV PRN (09:57)
[2019-09-13] MEDS: SOD FERRIC GLUC 125 MG in IV NS 0.9% 100 ML IV SCH (14:00)
--- NOTE | 2019-09-13 15:54 | NUR ---
Patient alert and oriented this shift, complains of constipation, PRN MOM given, not yet effective. Patient assisted with all needs, all MD orders and med orders given and carried out. She continues to refuse angiogram reporting "that she does not need any more test and I have everything dylon control"
[2019-09-13 16:06] VITALS: BP 178/64
--- NOTE | 2019-09-13 19:30 | NUR ---
MS RN NOTE: PATIENT RESTING IN BED, NO ACUTE DISTRESS NOTED. BREATHING EVEN AND UNLABORED, NO SOB NOTED. MIDLINE TO NEHEMIAH IN PLACE. BED LOCKED AND IN LOWEST POSITION, CALL LIGHT IN REACH, WILL CONTINUE TO MONITOR.
[2019-09-13 20:00] VITALS: BP 163/75
--- NOTE | 2019-09-14 03:00 | NUR ---
MS RN NOTE: PATIENT SLEEPING IN BED, NO ACUTE DISTRESS NOTED. BREATHING EVEN AND UNLABORED, NO SOB NOTED. MIDLINE TO NEHEMIAH IN PLACE. BED LOCKED AND IN LOWEST POSITION, CALL LIGHT IN REACH, WILL CONTINUE TO MONITOR.
--- NOTE | 2019-09-14 06:05 | NUR ---
MS RN NOTE: PATIENT RESTING IN BED, NO ACUTE DISTRESS NOTED. BREATHING EVEN AND UNLABORED, NO SOB NOTED. MIDLINE TO NEHEMIAH IN PLACE. BED LOCKED AND IN LOWEST POSITION, CALL LIGHT IN REACH, WILL ENDORSE TO DAY NURSE TO CONTINUE WITH PLAN OF CARE.
[2019-09-14 08:00] VITALS: BP 159/76
--- NOTE | 2019-09-14 08:00 | NUR ---
m/s insurance claims analyst: initial assessment received pt in bed awake, a/ox4. no c/o pain at this time. pt still complaining constipation. pt noted with anxiousness and needy. no distress noted. instructed to call for assistance.
[2019-09-14] MEDS: DOCUSATE SODIUM 100 MG CAPSULE PO SCH ×2 (08:12→17:03)
[2019-09-14] MEDS: ATORVASTATIN 10 MG TABLET PO SCH (08:12)
[2019-09-14] MEDS: predniSONE 5 MG TABLET PO SCH ×2 (08:12→17:00)
[2019-09-14] MEDS ORDERED: LACTULOSE 10 G/15 ML UDC (PYXIS) PO PRN (09:00)
--- NOTE | 2019-09-14 09:35 | NUR ---
m/s natural sciences professor: notes pt up in bsc and trying to go, but couldn't. self impacted done by pt and still unable to go. lactulose given, but refuse. med discarded. pt wants an enema. place a call to dr. wilson.
[2019-09-14] MEDS ORDERED: NA PHOS,M-B/NA PHOS,DI-BA 1 EA ENEMA RC PRN (10:00)
--- NOTE | 2019-09-14 10:15 | NUR ---
m/s bandmill operator: notes pt still complaining and wants staff to do manual disimpaction. dr. wilson notified and made aware and okay to manual disimpact pt. order read back. manual disimpaction performed, gurdeep. well. kept clean and dry. good pericare rendered. will continue to monitor.
[2019-09-14] MEDS ORDERED: PHENYLEPHRINE/SHK LV/MO/PET,WH 30 GM TUBE RC PRN (12:00)
--- NOTE | 2019-09-14 14:00 | NUR ---
m/s garage door service technician: notes pt made aware re: discharge to [facility] today and discharge skin photo taken and placed in chart. noted fading bruise/skin discoloration to left side of face and neck. pt already called daughter and no need for me to call her as stated. instructed to call for assistance. will monitor.
--- NOTE | 2019-09-14 14:30 | NUR ---
m/s rehabilitation aide: notes discharge instructions given to pt and verbalized understanding. all belongings/valuables returned to pt.
--- NOTE | 2019-09-14 15:00 | NUR ---
m/s back tender cylinder: notes report given to chrissie marie) from [facility] [place] for continuity of care. pt is on the phone with daughter.
--- NOTE | 2019-09-14 15:15 | NUR ---
m/s branch store manager: notes midline removed as ordered with no bleeding noted. pressure dressing applied to site.
[2019-09-14 16:00] VITALS: BP_SYST 159; BP_SYST 167; BP_DIAS 76; BP_DIAS 85
--- NOTE | 2019-09-14 18:05 | NUR ---
m/s account support analyst: notes f/u made to ambulance spoke to nain and apologize for being late, eta in 20 minutes. pt made aware. needs attended. will continue to monitor.
--- NOTE | 2019-09-14 18:50 | NUR ---
m/s systematic theology professor: notes ambulance here and report given to one of the crew.
--- NOTE | 2019-09-14 19:00 | NUR ---
m/s anode adjuster: notes pt was not ready, wants to eat and use the bsc. ambulance waiting outside the room.
--- NOTE | 2019-09-14 19:27 | NUR ---
m/s saddle stitch operator: discharged discharged to [facility] via ambulance accompanied by 2 crew in stable condition with valuables.
== END 2019-09-14 19:25 | DRG 480 ==
LOC: ER 10:26 → MED 12:57
PROVIDERS: ADMIT Family Medicine; ATTEND Student in an Organized Health Care Education/Training Program
PROC: 0QS704Z Reposition Left Upper Femur with Internal Fixation Device, Open Approach (ICD-10-PCS; principal; 2019-09-09)
PROC: 30233N1 Transfusion of Nonautologous Red Blood Cells into Peripheral Vein, Percutaneous Approach (ICD-10-PCS; 2019-09-09)
PROC: 05HB33Z Insertion of Infusion Device into Right Basilic Vein, Percutaneous Approach (ICD-10-PCS; 2019-09-11)
DX: S72.012A Unspecified intracapsular fracture of left femur, initial encounter for closed fracture (principal); N17.0 Acute kidney failure with tubular necrosis; K51.90 Ulcerative colitis, unspecified, without complications; J98.11 Atelectasis; W01.0XXA Fall on same level from slipping, tripping and stumbling without subsequent striking against object, initial encounter; Y92.9 Unspecified place or not applicable; D63.8 Anemia in other chronic diseases classified elsewhere; I25.10 Atherosclerotic heart disease of native coronary artery without angina pectoris; D72.829 Elevated white blood cell count, unspecified; K59.00 Constipation, unspecified; Z79.82 Long term (current) use of aspirin; Z95.5 Presence of coronary angioplasty implant and graft; Z87.891 Personal history of nicotine dependence; Z85.3 Personal history of malignant neoplasm of breast; Z85.118 Personal history of other malignant neoplasm of bronchus and lung; Z82.49 Family history of ischemic heart disease and other diseases of the circulatory system; Z79.899 Other long term (current) drug therapy; Z79.01 Long term (current) use of anticoagulants; E86.9 Volume depletion, unspecified; T39.395A Adverse effect of other nonsteroidal anti-inflammatory drugs [NSAID], initial encounter; Z79.890 Hormone replacement therapy; Z79.02 Long term (current) use of antithrombotics/antiplatelets; I10 Essential (primary) hypertension
CPT/HCPCS: 36415; 36569; 70450-TC; 71045-TC; 73020; 73502; 73700-TC; 80048-TC; 80053-TC; 80061-TC; 81000-TC; 82728-TC; 83540-TC; 83735-TC; 84100-TC; 84439-TC; 84443-TC; 84484-TC; 85025-TC; 85027-TC; 85610-TC; 85730-TC; 86850-TC; 86921-TC; 87040-TC; 87081-TC; 93307-TC; 94799-TC; 97110-TC; 97116-TC; 97530-TC; A6209; C1713; G0378; J0696; J1100; J1170; J1650; J2270; J2405; J2916; J3010; J3490; J7030; J7050; J7060; J7120; J7512; P9016-BL